=== PATIENT | female | born 1960 | race Two or more races ===

== ENCOUNTER → 2016-10-15 | Outpatient (CLI) | payer BC ==
--- NOTE | ~2016-10-15 | US24 ---
[facility] A Service of [facility] RADIOLOGY TEXT RESULTS PATIENT: ANTOINETTE LOCKE LOCATION: [facility] : 56 UNIT #: [id number] AGE: [address]: PATRICIA HERNANDEZ MD SEX: F ORDER DR: [id number] [facility] [address] [place], [place] [address] [id number] O MR#: [id number] Acc #: [id number] NAME: ANTOINETTE LOCKE : 1960 SEX: F STUDY DATE/TIME: 10/15/2016 9:35 UNIT: [facility] ROOM: STUDY DESCRIPTION: US Breast Unilateral Attending Physician: Patricia Hernandez M.D. Referring Physician: Patricia Hernandez M.D. Ordering Physician: Patricia Hernandez M.D. Primary Care Physician: Patricia Hernandez M.D. MEDICAL IMAGING REPORT This report is preliminary unless electronic signature is present EXAM Diagnostic right breast ultrasound, 10/15/2016 HISTORY Complains of right axillary pain and swelling for approximately 4 days. COMPARISON Bilateral diagnostic mammogram 10/15/2016. No more remote available mammograms for comparison. FINDINGS Targeted sonographic imaging was performed at the site of patient's palpable complaint in the right axilla. Benign appearing right axillary lymph nodes are seen with thin cortex and prominent fatty everett. However, no suspicious solid mass lesion or cystic lesion, architectural distortion or microcalcification is seen. IMPRESSION Please refer to diagnostic mammogram report from the same day for full description of mammographic and sonographic findings and recommendations. Patients over the age of 40 are entered into a reminder system with target due date for the next mammogram. A result letter will also be sent to the patient. BIRADS: 2 Benign Finding Dictated by... Darshana Friend M.D. THIS IS AN ELECTRONICALLY VERIFIED REPORT Darshana Friend M.D. at 10/18/2016 9:28 AM JOHNY/pavel [facility] A Service of [facility] RADIOLOGY TEXT RESULTS PATIENT: ANTOINETTE LOCKE [id number] : 56 UNIT #: [id number] AGE: [address]: PATRICIA HERNANDEZ MD SEX: F ORDER DR: TD: 10/15/2016 12:58 JOB #: [id number] MEDICAL IMAGING REPORT Page 1 of 1 COPY
--- NOTE | ~2016-10-15 | MY26 ---
[facility] A Service of [facility] RADIOLOGY TEXT RESULTS PATIENT: ANTOINETTE LOCKE LOCATION: [facility] : 56 UNIT #: [id number] AGE: [address]: PATRICIA HERNANDEZ MD SEX: F ORDER DR: [id number] [facility] [address] [place], [place] [address] [id number] O MR#: [id number] Acc #: [id number] NAME: ANTOINETTE LOCKE : 1960 SEX: F STUDY DATE/TIME: 10/15/2016 8:28 UNIT: [facility] ROOM: STUDY DESCRIPTION: [facility] DIAGNOSTIC W/ CAD BILAT Attending Physician: Patricia Hernandez M.D. Referring Physician: Patricia Hernandez M.D. Ordering Physician: Patricia Hernandez M.D. Primary Care Physician: Patricia Hernandez M.D. MEDICAL IMAGING REPORT This report is preliminary unless electronic signature is present EXAM Bilateral digital diagnostic mammogram with CAD, 10/15/2016 HISTORY 56-year-old female with history of right axillary pain and swelling for approximately 4 days. COMPARISON None. This is the patient's new baseline study. She does not remember where or when her previous study was performed. FINDINGS CC, MLO and true ML views were obtained of each breast utilizing digital technique and reviewed with an FDA-approved CAD device. Scattered fibroglandular densities are present bilaterally, greatest in the superior hemisphere of each breast. No suspicious nodule, architectural distortion or cluster of microcalcification is seen. Benign round calcifications are present bilaterally. Benign appearing and fairly symmetric lymph nodes are seen within the imaged portions of the axilla. Due to the patient's complaint of palpable abnormality, targeted sonographic imaging was performed of the right axillary region. Benign appearing right axillary lymph nodes are identified with thin cortex and normal fatty hilum, one of the largest of which measures up to 1.7 cm in long axis. However, no suspicious cystic or solid nodule is seen sonographically. IMPRESSION 1. There are no features suspicious for malignancy on today's examination. Benign appearing lymph nodes are seen within the right axilla on diagnostic ultrasound today. 2. Any further management of the patient's right axillary swelling/pain STS. [facility] A Service of [facility] & [facility] RADIOLOGY TEXT RESULTS PATIENT: ANTOINETTE LOCKE LOCATION: [facility] : 56 UNIT #: [id number] AGE: [address]: PATRICIA HERNANDEZ MD SEX: F ORDER DR: should be based upon clinical assessment. 3. Patient is recommended to return for routine bilateral screening mammogram within one year. 4. The findings and recommendations were discussed with the patient today in the Radiology Department. Patients over the age of 40 are entered into a reminder system with target due date for the next mammogram. A result letter will also be sent to the patient. BIRADS: 2 Benign Finding Dictated by... Darshana Friend M.D. THIS IS AN ELECTRONICALLY VERIFIED REPORT Darshana Friend M.D. at 10/18/2016 9:28 AM Vinnie TD: 10/15/2016 12:55 JOB #: [id number] MEDICAL IMAGING REPORT Page 1 of 1 COPY
== END | disposition home or self-care (01) ==
LOC: CWCC 07:35
DX: R92.8 Other abnormal and inconclusive findings on diagnostic imaging of breast (principal); R22.9 Localized swelling, mass and lump, unspecified; M79.621 Pain in right upper arm
CPT/HCPCS: 76641; G0204